=== PATIENT | female | born 1965 | race Caucasian/White ===

== ENCOUNTER 2018-06-27 09:40 | Day surgery (SDC) | payer OTHER | END 2018-06-27 14:35 | disposition home or self-care (01) | LOC: AMB-ENDOS 09:40 | DX: D12.7 Benign neoplasm of rectosigmoid junction (principal); K64.8 Other hemorrhoids ==

== ENCOUNTER 2019-07-31 09:20 | Day surgery (SDC) | payer OTHER | END 2019-07-31 13:00 | disposition home or self-care (01) | LOC: AMB-ENDOS 09:20 | DX: D12.7 Benign neoplasm of rectosigmoid junction (principal); K64.8 Other hemorrhoids; K57.30 Diverticulosis of large intestine without perforation or abscess without bleeding ==

== ENCOUNTER 2020-08-26 06:28 | Day surgery (SDC) | payer OTHER | END 2020-08-26 09:55 | disposition home or self-care (01) | LOC: AMB-ENDOS 06:28 | PROVIDERS: ATTEND Surgery | DX: D12.5 Benign neoplasm of sigmoid colon (principal); Z20.822 Contact with and (suspected) exposure to COVID-19 ==

== ENCOUNTER 2021-06-09 12:15 | Inpatient (IN) | payer OTHER ==
[~2021-06-09] VITALS: Ht 162.6 cm; Wt 113.4 kg
[2021-06-14] MEDS ORDERED: ULTRACET PO (11:14)
== END 2021-06-14 11:40 | disposition home or self-care (01) | DRG 331 ==
LOC: O/R 06-11 05:49 → SURH 06-11 05:49 → SURG 06-11 11:26 → O/R 06-11 11:38 → SURG 06-11 11:39 → SURH 06-11 12:15
PROVIDERS: ADMIT Surgery; ATTEND Surgery
PROC: 0DBP4ZZ Excision of Rectum, Percutaneous Endoscopic Approach (ICD-10-PCS; 2021-06-11)
PROC: 07BC4ZX Excision of Pelvis Lymphatic, Percutaneous Endoscopic Approach, Diagnostic (ICD-10-PCS; 2021-06-11)
PROC: 0DTN4ZZ Resection of Sigmoid Colon, Percutaneous Endoscopic Approach (ICD-10-PCS; principal; 2021-06-11 11:00)
DX: D12.5 Benign neoplasm of sigmoid colon (principal); K57.30 Diverticulosis of large intestine without perforation or abscess without bleeding; Z86.010 Personal history of colon polyps; Z80.0 Family history of malignant neoplasm of digestive organs; E66.01 Morbid (severe) obesity due to excess calories